=== PATIENT | female | born 1970 | race African-American/Black ===

== ENCOUNTER 2021-02-19 08:49 | Observation (INO) ==
[2021-02-19] MEDS ORDERED: FUROSEMIDE 100 MG/10 ML VIAL IV STA (09:20)
[2021-02-19] MEDS ORDERED: ALBUTEROL 2.5 MG/3 ML NEB RESP TX STA ×3 (09:22→11:29)
[2021-02-19 09:39] LABS: Basophils # 0.1 10*3/uL (0.0-0.2); Basophils % 0.8 % (0.0-0.8); Eosinophils # 0.8 10*3/uL (0.0-0.87); Eosinophils % 10.4 % (0.00-10.9); Hematocrit 44.1 VOL% (35.7-47.0); Hemoglobin 13.9 GM/DL (12.0-16.0); Immature Granulocytes % 0.3 %; Immature Granulocytes Absolute 0.02 #; Lymphocytes # 1.9 10*3/uL (1.4-4.0); Lymphocytes % 26.6 % (21.3-54.2); Mean Corpuscular HGB Conc 31.5 GM/DL (32-36); Mean Corpuscular Volume 76.8 FL (87-102); Mean Platelet Volume 11.8 FL (9.6-12.0); Monocytes % 7.1 % (1.7-12.7); Neutrophils % 54.8 % (38.7-73.9); Platelet Count 280 T/CUMM (130-400); Red Blood Count 5.74 MC/CUMM (3.8-5.5); Red Cell Distribution Width 17.1 % (9.3-17.3); White Blood Count 7.2 T/CUMM (4-12)
[2021-02-19] MEDS ORDERED: methylPREDNISolone SOD SUC 40 MG/1 ML VIAL IV STA (09:40)
[2021-02-19 09:57] LABS: Albumin 4.4 G/DL (3.4-5.0); Bilirubin,Total 1.1 MG/DL (0.2-1.0); Calcium 9.8 MG/DL (8.5-10.1); Osmolality,Calculated 278.4 MOS/KG (273-304); Potassium 3.7 MMOL/L (3.5-5.1); Total Protein 8.5 G/DL (6.4-8.2)
[2021-02-19] MEDS ORDERED: ONDANSETRON 4 MG/2 ML VIAL IV PRN (12:13)
[2021-02-19] MEDS ORDERED: guaiFENesin/DM ER 600-30 MG TABLET PO PRN (12:13)
[2021-02-19] MEDS ORDERED: BENZONATATE 100 MG CAPSULE PO PRN (12:16)
[2021-02-19] MEDS ORDERED: ENOXAPARIN 40 MG/0.4 ML SYRINGE SUBCUT SCH (12:30)
[2021-02-19] MEDS: ALBUTEROL/IPRATROPIUM 3 ML NEB RESP TX SCH ×2 (14:47→19:44)
[2021-02-19] MEDS: AZITHROMYCIN 250 MG TABLET PO SCH (15:26)
[2021-02-19] MEDS: methylPREDNISolone SOD SUC 40 MG/1 ML VIAL IV SCH ×2 (15:27→20:21)
[2021-02-19] MEDS ORDERED: ACETAMINOPHEN 325 MG TABLET PO PRN (18:01)
[2021-02-20] MEDS: ALBUTEROL/IPRATROPIUM 3 ML NEB RESP TX SCH ×2 (00:21→07:27)
[2021-02-20 04:23] LABS: Basophils % 0.1 % (0.0-0.8); Hemoglobin 13.7 GM/DL (12.0-16.0); Immature Granulocytes % 0.6 %; Immature Granulocytes Absolute 0.05 #; Lymphocytes % 10.6 % (21.3-54.2); Mean Corpuscular HGB Conc 31.9 GM/DL (32-36); Mean Corpuscular Volume 76.1 FL (87-102); Mean Platelet Volume 12.1 FL (9.6-12.0); Monocytes % 1.8 % (1.7-12.7); Neutrophils % 86.9 % (38.7-73.9); Platelet Count 296 T/CUMM (130-400); Red Blood Count 5.65 MC/CUMM (3.8-5.5); Red Cell Distribution Width 16.5 % (9.3-17.3); White Blood Count 9.1 T/CUMM (4-12)
[2021-02-20] MEDS: methylPREDNISolone SOD SUC 40 MG/1 ML VIAL IV SCH (04:39)
[2021-02-20 04:50] LABS: Calcium 9.8 MG/DL (8.5-10.1); Osmolality,Calculated 278.8 MOS/KG (273-304); Potassium 3.3 MMOL/L (3.5-5.1); Risk Ratio 2.24; Thyroid Stimulating Hormone 0.219 uIU/ml (0.358-3.74); VLDL CHOLESTEROL 7.6 MG/DL
[2021-02-20] MEDS ORDERED: POTASSIUM CHLORIDE 20 MEQ TABLET PO ONE (06:56)
[2021-02-20] MEDS ORDERED: POTASSIUM CHLORIDE 10 MEQ TABLET PO SCH (09:00)
[2021-02-20] MEDS ORDERED: MELOXICAM 7.5 MG TABLET PO SCH (09:00)
[2021-02-20] MEDS ORDERED: hydroCHLOROthiazide 12.5 MG CAPSULE PO SCH (09:00)
[2021-02-20] MEDS ORDERED: PANTOPRAZOLE 40 MG TABLET PO SCH (09:00)
[2021-02-20] MEDS ORDERED: FLUTICASONE 50 MCG NASAL SPRAY 16 GM BOTTLE BOTH NARES SCH (09:00)
[2021-02-20] MEDS ORDERED: amLODIPine 10 MG TABLET PO SCH (09:00)
[2021-02-20] MEDS ORDERED: BUDESONIDE/FORMOTEROL 160-4.5 INHALER 6 GM INH SCH (09:00)
[2021-02-20] MEDS: AZITHROMYCIN 250 MG TABLET PO SCH (09:32)
[2021-02-20 12:42] VITALS: BP 143/63
[2021-02-20] MEDS ORDERED: MONTELUKAST 10 MG TABLET PO SCH (21:00)
[2021-02-20] MEDS ORDERED: ATORVASTATIN 10 MG TABLET PO SCH (21:00)
== END 2021-02-20 12:45 | disposition home or self-care (01) ==
LOC: N.EDINP 08:49 → N.ED 08:49 → SUATTDRO 12:13 → N.TELES 14:03
PROVIDERS: ADMIT Family Medicine; ATTEND Internal Medicine Geriatric Medicine